=== PATIENT | male | born 1975 | race Caucasian/White ===

== ENCOUNTER → 2017-08-18 | Outpatient (CLI) | payer OTHER | END | disposition home or self-care (01) | LOC: KCIC US 12:25 | DX: I82.4Z2 Acute embolism and thrombosis of unspecified deep veins of left distal lower extremity (principal); Z86.718 Personal history of other venous thrombosis and embolism | CPT/HCPCS: 93971 ==

== ENCOUNTER → 2018-04-20 | Outpatient (CLI) | payer OTHER ==
[2013-11-11 18:40] VITALS: BP 110/65
--- NOTE | 2018-04-20 16:51 | RAD ---
Left lower extremity venous duplex study 04/20/2018 Clinical History: Follow-up left leg DVT. Technique: Using a combination of real time ultrasound imaging and color-flow and pulse Doppler imaging techniques along with graded compression and augmentation, duplex evaluation of the deep venous system of the left lower extremity was performed. Multiple images were obtained. Findings: Comparison study is dated 08/18/2017. Partially occlusive thrombus is seen within the left popliteal vein. This has improved since the previous examination. The DVT seen within the distal left superficial femoral vein on the previous examination has resolved. The left superficial femoral and left common femoral veins are patent. IMPRESSION: Residual nonocclusive DVT is seen involving the left popliteal vein. This has improved since the previous examination. Electronically signed by: Bryn Mueller MD (04/20/2018 4:48 PM) [email or web address]
== END | disposition home or self-care (01) ==
LOC: US 15:38
PROVIDERS: ATTEND Family Medicine
DX: I82.492 Acute embolism and thrombosis of other specified deep vein of left lower extremity (principal)
CPT/HCPCS: 93971